=== PATIENT | male | born 1970 | race Caucasian/White ===

== ENCOUNTER 2021-06-21 12:17 | Outpatient (CLI) | payer OTHER, SELFPAY ==
--- NOTE | ~2021-06-21 | XR_ITS ---
EXAMINATION: XR lumbar spine 2-3V DATE: 06/21/2021 13:03 INDICATION: Low back pain TECHNIQUE: Anteroposterior and lateral views of the lumbar spine, and cone-down lateral view of the l umbosacral junction were obtained. COMPARISON: None. FINDINGS: There is no fracture, dislocation, or subluxation. The vertebral body heights and intervert ebral disc spaces are normal. Small degenerative osteophytes project from the anterior endplates of m ultiple vertebral bodies. Changes of left sacroiliac fusion are noted. IMPRESSION: 1. Mild lumbar spondylosis. Reviewed, dictated and finalized at location B. IMPRESSION: 1. Mild lumbar spondylosis.
--- NOTE | ~2021-06-21 | XR_ITS ---
EXAMINATION: XR hip LT min 2V INDICATION: Left hip pain TECHNIQUE: Two views of the left hip are obtained. COMPARISON: None available FINDINGS: Bone alignment is normal. There is no fracture. There are changes of fusion at the left sac roiliac joint. Soft tissues are unremarkable. IMPRESSION: 1. No acute osseous abnormality. Reviewed, dictated and finalized at location B.
--- NOTE | ~2021-06-21 | XR_ITS ---
EXAMINATION: XR sacroiliac joints min 3V INDICATION: Low back pain TECHNIQUE: Three views of the sacroiliac joints are obtained. COMPARISON: None available FINDINGS: There are changes of left sacroiliac fusion. There is no fracture. No abnormal sclerosis or erosion is identified. The soft tissues are unremarkable. IMPRESSION: 1. No acute osseous abnormality. Reviewed, dictated and finalized at location B.
== END 2021-06-21 12:18 | disposition home or self-care (01) ==
LOC: ANHIMG 12:27
PROVIDERS: PCP Internal Medicine; Visit Provider Physician Assistant
DX: M25.552 Pain in left hip (principal); M47.896 Other spondylosis, lumbar region
CPT/HCPCS: 72100; 72202; 73502

== ENCOUNTER 2022-05-14 07:38 | Outpatient (CLI) | payer OTHER, MEDICAID, SELFPAY ==
--- NOTE | 2022-05-14 | ECHO_ITS ---
Patient Info Name: Michael Valle Age: 51 years : 1970 Gender: Male Ht: 70 in Wt: 230 lbs BSA: 2.30 m2 HR: 60 bpm BP: 129 / 92 mmHg Technical Quality: Good Exam Date: 05/14/2022 7:53 AM Exam Location: [facility] Patient Status: Outpatient Admit Date: 05/14/2022 Staff Ordering Physician: LuannJasmyn [employer] Teacher: Misty Washington RDCS Attending Provider: ZakiJasmyn Exam Type: CA echo doppler color flow Study Info Indications R07.9 - Chest pain, unspecified Complete two-dimensional, color flow and Doppler transthoracic echocardiogram is performed. Summary 1. Complete two-dimensional, color flow and Doppler transthoracic echocardiogram is performed. 2. Left ventricular chamber dimension is normal. 3. Left ventricular systolic function is normal, estimated at 55-60%. 4. There is mildly increased left ventricular wall thickness. 5. The left ventricular diastolic function is grade II diastolic dysfunction. 6. E/e' 6 is not elevated. 7. Global longitudinal strain is mildly abnormal at -16.7%. 8. Left atrial chamber dimension is mildly enlarged. 9. No pulmonary hypertension, estimated pulmonary arterial systolic pressure is 25 mmHg. Left Ventricle E/e' 6 is not elevated. Global longitudinal strain is mildly abnormal at -16.7%. Left ventricular chamber dimension is normal. Left ventricular systolic function is normal, estimated at 55-60%. There is mildly increased left ventricular wall thickness. The left ventricular diastolic function is grade II diastolic dysfunction. Right Ventricle Right ventricular systolic function is normal and with normal TAPSE 2.1 cm. Right ventricular chamber dimension is normal. Left Atria Left atrial chamber dimension is mildly enlarged. Right Atria Right atrial chamber dimension is normal. Aortic Valve The aortic valve is trileaflet. There is no aortic valve stenosis. There is no aortic valve regurgitation. Pulmonic Valve There is no pulmonic regurgitation. Mitral Valve There is no mitral valve stenosis. There is no mitral valve regurgitation. Tricuspid Valve There is no tricuspid valve regurgitation. No pulmonary hypertension, estimated pulmonary arterial systolic pressure is 25 mmHg. Pericardium/Pleural There is no pericardial effusion. Inferior Vena Cava Normal inferior vena cava with >50% collapse upon inspiration consistent with normal right atrial pressure, 5 mmHg. Aorta The aortic root size at the sinus of Valsalva is normal. Left Ventricular Outflow Tract Name Value Normal LVOT 2D LVOT Diameter 1.9 cm LVOT Doppler LVOT Peak Gradient 3 mmHg LVOT Mean Gradient 1 mmHg LVOT VTI 15 cm LVOT VTI/AV VTI Ratio 0.7 LVOT Stroke Volume 41 ml LVOT CO 2.8 l/min LVOT CI 1.2 l/min/m2 Pulmonic Valve Name
== END 2022-05-14 07:39 | disposition home or self-care (01) ==
LOC: ANHCARD 07:41
PROVIDERS: PCP Physician Assistant; Visit Provider Physician Assistant
DX: R07.9 Chest pain, unspecified (principal)
CPT/HCPCS: 93306